=== PATIENT | female | born 1955 | race Caucasian/White ===

== ENCOUNTER 2020-10-28 14:52 | Emergency (ER) | payer MEDICARE ==
[~2020-10-28] VITALS: Ht 157.5 cm; Wt 64.3 kg
[2020-10-28 19:40] LABS: BASOPHILS # (AUTO) 0.1 X10'3 (0-0.2); EOSINOPHILS # (AUTO) 0.1 X10'3 (0-0.9); EOSINOPHILS % (AUTO) 1.1 % (0-6); HEMATOCRIT 39.4 % (35.0-45.0); HEMOGLOBIN 13.3 g/dl (12.0-16.0); LYMPHOCYTES # (AUTO) 2.5 X10'3 (1.1-4.8); LYMPHOCYTES % (AUTO) 22.1 % (21-51); MEAN CORPUSCULAR HEMOGLOBIN 30.3 PG (27.0-31.0); MEAN CORPUSCULAR HGB CONC 33.8 g/dL (33.0-36.5); MEAN CORPUSCULAR VOLUME 89.7 FL (78-98); MEAN PLATELET VOLUME 7.6 FL (7.4-10.4); MONOCYTES % (AUTO) 9.2 % (2-12); NEUTROPHILS # (AUTO) 7.4 X10'3 (1.8-7.7); NEUTROPHILS % (AUTO) 66.6 % (42-75); PLATELET COUNT 372 X10'3 (140-440); RED BLOOD COUNT 4.39 X10'6 (4.20-5.60); RED CELL DISTRIBUTION WIDTH 14.2 % (11.5-14.5); WHITE BLOOD COUNT 11.1 X10'3 (4.5-11.0)
[2020-10-28 19:47] LABS: ALANINE AMINOTRANSFERASE 25 U/L (12-78); ALBUMIN 3.8 G/DL (3.4-5.0); ALBUMIN/GLOBULIN RATIO 0.9 (1.1-1.5); ALKALINE PHOSPHATASE 78 IU/L (46-116); ANION GAP 6 (8-16); ASPARTATE AMINO TRANSFERASE 18 U/L (10-37); BILIRUBIN,TOTAL 0.5 MG/DL (0.1-1.0); BLOOD UREA NITROGEN 19 MG/DL (7-18); BUN/CREATININE RATIO 25.3 (6.6-38.0); CALCIUM 9.6 MG/DL (8.5-10.1); CHLORIDE 98 MMOL/L (99-107); CREATININE 0.75 MG/DL (0.40-0.90); GLUCOSE 87 MG/DL (70-104); POTASSIUM 3.8 MMOL/L (3.5-5.1); SODIUM 135 MMOL/L (135-145); TOTAL CARBON DIOXIDE 31.1 MMOL/L (24-32); TOTAL PROTEIN 8.2 G/DL (6.4-8.2); eGFR 78 ML/MIN
[2020-10-28 19:56] VITALS: BP 167/82
--- NOTE | 2020-10-28 19:57 | NUR ---
pt is resting quietly on gurney, pt would like to go, waiting for ultrasound
--- NOTE | 2020-10-28 20:00 | NUR ---
tech is on the way in
[2020-10-28] MEDS ORDERED: cephalexin 250mg capsule PO ONE (21:35)
--- NOTE | 2020-10-28 21:37 | NUR ---
cardiovascular invasive specialist has done procedure
[2020-10-28] MEDS ORDERED: CEPH-585 PO (21:45)
== END 2020-10-28 21:51 | disposition home or self-care (01) ==
LOC: ER 14:53
DX: L03.115 Cellulitis of right lower limb (principal); J44.9 Chronic obstructive pulmonary disease, unspecified; M81.0 Age-related osteoporosis without current pathological fracture
CPT/HCPCS: 36415; 80053; 85025; 93971; 99284

== ENCOUNTER 2021-10-22 16:35 | Inpatient (IN) | payer MEDICARE ==
[~2021-10-22] VITALS: Ht 157.5 cm; Wt 60.9 kg
[~2021-10-22 16:35] MED LIST: ALB0.5UD IH; ALBU90AE2 INH; AMLO5TAB16 PO; AZIT250T27 PO; CEPH-585 PO; CLOB30CR11; FLUT1DIS10 INH; LEVO100T PO; MONT-40 PO; TIOT4MIS2 INH; Vitamin B12; Vitamin C; Vitamin D3
[2021-10-22] MEDS ORDERED: ondansetron/PF 4mg/2ml inj IV ONE (17:05)
[2021-10-22] MEDS ORDERED: fentaNYL/PF 50MCG/1 ML 2ML syringe IV ONE ×2 (17:05→18:25)
--- NOTE | 2021-10-22 17:36 | NUR ---
ORDER FOR FENTANYL 50MCG. PT STATES SHE DOES NOT LIKE PAIN MEDS. 25MCG GIVEN TO SEE HOW PT TOLERATED. PT ABLE TO RELAX BACK INTO THE BED AND STATES BREATING IS IMPROVED. PT DECLINES THE REST OF THE MED. PT SUSNA WELL WITH 25MCG
[2021-10-22 17:42] LABS: BASOPHILS # (AUTO) 0.1 X10'3 (0-0.2); BASOPHILS % (AUTO) 0.4 % (0-1); EOSINOPHILS # (AUTO) 0.1 X10'3 (0-0.9); EOSINOPHILS % (AUTO) 0.5 % (0-6); HEMATOCRIT 36.5 % (35.0-45.0); HEMOGLOBIN 12.1 g/dl (12.0-16.0); LYMPHOCYTES # (AUTO) 1.3 X10'3 (1.1-4.8); LYMPHOCYTES % (AUTO) 9.1 % (21-51); MEAN CORPUSCULAR HEMOGLOBIN 28.6 PG (27.0-31.0); MEAN CORPUSCULAR HGB CONC 33.2 g/dL (33.0-36.5); MEAN PLATELET VOLUME 7.3 FL (7.4-10.4); MONOCYTES % (AUTO) 7.5 % (2-12); NEUTROPHILS # (AUTO) 11.4 X10'3 (1.8-7.7); NEUTROPHILS % (AUTO) 82.5 % (42-75); PLATELET COUNT 370 X10'3 (140-440); RED BLOOD COUNT 4.25 X10'6 (4.20-5.60); RED CELL DISTRIBUTION WIDTH 14.4 % (11.5-14.5); WHITE BLOOD COUNT 13.8 X10'3 (4.5-11.0)
[2021-10-22 17:58] LABS: ALANINE AMINOTRANSFERASE 24 U/L (12-78); ALBUMIN 3.8 G/DL (3.4-5.0); ALKALINE PHOSPHATASE 76 IU/L (46-116); ANION GAP 10 (8-16); ASPARTATE AMINO TRANSFERASE 18 U/L (10-37); BILIRUBIN,TOTAL 0.4 MG/DL (0.1-1.0); BLOOD UREA NITROGEN 21 MG/DL (7-18); BUN/CREATININE RATIO 29.6 (6.6-38.0); CHLORIDE 101 MMOL/L (99-107); CREATININE 0.71 MG/DL (0.40-0.90); GLUCOSE 97 MG/DL (70-104); POTASSIUM 4.2 MMOL/L (3.5-5.1); SODIUM 140 MMOL/L (135-145); TOTAL CARBON DIOXIDE 28.7 MMOL/L (24-32); TOTAL PROTEIN 7.6 G/DL (6.4-8.2); eGFR 83 ML/MIN
[2021-10-22 18:02] LABS: MAGNESIUM 1.9 MG/DL (1.5-2.4)
[2021-10-22] MEDS ORDERED: ketamine 50 mg/ml 10ml vial IV ONE (18:55)
[2021-10-22] MEDS ORDERED: LIDOcaine 1% W/epiNEPHrine 1:200,000 10ml vial IJ ONE (18:55)
[2021-10-22] MEDS ORDERED: LIDOcaine 1% W/epiNEPHrine 1:100,000 20ml vial IJ ONE (19:35)
[2021-10-22] MEDS ORDERED: morphine 4 MG/ML inj SYRINge IV ONE (20:55)
[2021-10-22] MEDS ORDERED: temazepam 15mg capsule PO PRN (21:00)
[2021-10-22] MEDS ORDERED: normal saline 1000ml 1,000 ML IV ONE (21:00)
[2021-10-22] MEDS ORDERED: niCARDipine-NS 40mg/200ml IVPB 200 ML IV SCH (21:25)
[2021-10-22] MEDS ORDERED: acetaminophen 325mg tablet PO PRN ×2 (22:05)
[2021-10-22] MEDS ORDERED: HYDROcodone/acetaminophen 5mg/325mg tablet PO PRN (22:05)
[2021-10-22] MEDS ORDERED: acetaminophen 650mg rectal suppository RC PRN (22:05)
[2021-10-22] MEDS ORDERED: magnesium hydroxide 30ml (MOM) UD suspension PO PRN (22:05)
[2021-10-22] MEDS ORDERED: bisacodyl 10mg suppository rectal RC PRN (22:05)
[2021-10-22] MEDS ORDERED: mag hydrox/Alum hydrox/simeth 30ml oral suspension PO PRN (22:05)
[2021-10-22] MEDS ORDERED: ondansetron/PF 4mg/2ml inj IV PRN (22:05)
[2021-10-22] MEDS ORDERED: diphenhydrAMINE 50 mg/ml inj IV PRN (22:05)
[2021-10-22] MEDS ORDERED: ondansetron 4mg rapidly disintigrating tab PO PRN (22:05)
[2021-10-22] MEDS ORDERED: diphenhydrAMINE 25mg capsule PO PRN (22:05)
[2021-10-22] MEDS: normal saline 1000ml 1,000 ML IV SCH (22:05)
[2021-10-22] MEDS ORDERED: morphine 2 MG/ML inj. syringe IV PRN ×2 (22:05)
[2021-10-22 22:27] LABS: HEMOGLOBIN A1C 5.8 % (4.5-6.2)
[2021-10-22 22:41] LABS: CREATINE KINASE 72 U/L (26-192); PHOSPHORUS 4.2 MG/DL (2.3-4.5)
--- NOTE | 2021-10-22 23:20 | NUR ---
SPOKE WITH DOCTOR REGARDING PT BP. ADDITIONAL HTN MEDICATION NON-ADMINISTERED PER DISCUSSION.
[2021-10-22] MEDS: methylPREDNISolone sod succ 125mg/2ml vial IV SCH (23:51)
[2021-10-22] MEDS: DOXYCYCLINE 100MG CAPSULE PO SCH (23:51)
[2021-10-22] MEDS: HYDROmorphone inj. 0.5 MG/0.5 ML DISP.SYRIN IV PRN (23:52)
[2021-10-23] MEDS: HYDROmorphone 1 mg/ml syringe IV PRN ×3 (00:44→21:53)
[2021-10-23 01:06] LABS: MEAN PLATELET VOLUME 7.1 FL (7.4-10.4); RED BLOOD COUNT 4.01 X10'6 (4.20-5.60); RED CELL DISTRIBUTION WIDTH 14.6 % (11.5-14.5)
[2021-10-23 01:07] LABS: BASOPHILS % (AUTO) 0.2 % (0-1); EOSINOPHILS % (AUTO) 0.1 % (0-6); HEMATOCRIT 35.2 % (35.0-45.0); HEMOGLOBIN 11.6 g/dl (12.0-16.0); LYMPHOCYTES # (AUTO) 0.8 X10'3 (1.1-4.8); MEAN CORPUSCULAR HEMOGLOBIN 28.9 PG (27.0-31.0); MEAN CORPUSCULAR HGB CONC 32.9 g/dL (33.0-36.5); MEAN CORPUSCULAR VOLUME 87.7 FL (78-98); MONOCYTES # (AUTO) 0.7 X10'3 (0-0.9); MONOCYTES % (AUTO) 3.7 % (2-12); NEUTROPHILS # (AUTO) 17.8 X10'3 (1.8-7.7); PLATELET COUNT 354 X10'3 (140-440); WHITE BLOOD COUNT 19.3 X10'3 (4.5-11.0)
[2021-10-23 01:25] LABS: ALANINE AMINOTRANSFERASE 25 U/L (12-78); ALBUMIN 3.6 G/DL (3.4-5.0); ALKALINE PHOSPHATASE 69 IU/L (46-116); ANION GAP 12 (8-16); ASPARTATE AMINO TRANSFERASE 19 U/L (10-37); BILIRUBIN,TOTAL 0.5 MG/DL (0.1-1.0); BLOOD UREA NITROGEN 20 MG/DL (7-18); BUN/CREATININE RATIO 31.3 (6.6-38.0); CALCIUM 8.6 MG/DL (8.5-10.1); CHLORIDE 102 MMOL/L (99-107); CHOL/HDL RATIO 2.3 (0.00-4.99); CHOLESTEROL 246 MG/DL (0-200); CREATININE 0.64 MG/DL (0.40-0.90); GLUCOSE 114 MG/DL (70-104); HDL CHOLESTEROL 106 MG/DL (35-60); LDL CHOLESTEROL 123 MG/DL (50-100); POTASSIUM 4.2 MMOL/L (3.5-5.1); SODIUM 141 MMOL/L (135-145); TOTAL CARBON DIOXIDE 26.6 MMOL/L (24-32); TOTAL PROTEIN 7.2 G/DL (6.4-8.2); TRIGLYCERIDES 48 MG/DL (20-135); eGFR > 90 ML/MIN
--- NOTE | 2021-10-23 02:18 | NUR ---
Patient in room ORTHO 4012. I have received report from Mohsen [facility] ED and had the opportunity to ask questions and assume patient care. Addendum: 10/23/21 at 0256 by Pat Montague RN Amended: Links added.
[2021-10-23 02:40] VITALS: BP 143/61
--- NOTE | 2021-10-23 03:15 | NUR ---
Pt . arrived on floor via [facility] accompanied by the ED RODNEY Connolly. Chest tube intact and patent, site drsg intact at this time.set up on wall suction to low intermitten; pt. vanessaies c/o SOB at this time- o2 at 6 L via n/c per RT advise. Addendum: 10/23/21 at 0416 by Pat Montague RN Amended: Links added.
[2021-10-23 06:00] VITALS: BP 139/59
[2021-10-23] MEDS: pantoprazole 40mg Tablet.DR PO SCH (07:30)
[2021-10-23] MEDS: docusate sod 100mg capsule PO SCH ×2 (08:00→21:24)
[2021-10-23] MEDS: DOXYCYCLINE 100MG CAPSULE PO SCH ×2 (08:00→21:24)
[2021-10-23] MEDS: methylPREDNISolone sod succ 125mg/2ml vial IV SCH ×2 (08:00→21:32)
[2021-10-23] MEDS: ALBUTEROL INHALER 1 PUFF/90 MCG INHALation IH PRN ×2 (09:08→13:22)
[2021-10-23 10:00] VITALS: BP 109/86
[2021-10-23] MEDS: normal saline 1000ml 1,000 ML IV SCH ×2 (11:55→21:38)
[2021-10-23] MEDS: cefTRIAXone 1g/NS 100ml IVPB 100 ML IV SCH (11:55)
--- NOTE | 2021-10-23 12:00 | NUR ---
Problems reprioritized. Patient report given, questions answered & plan of care reviewed with Glenis STEVENS. Addendum: 10/23/21 at 1319 by Pat Montague RN Amended: Links added.
[2021-10-23] MEDS: HYDROmorphone inj. 0.5 MG/0.5 ML DISP.SYRIN IV PRN ×2 (12:42→17:36)
--- NOTE | 2021-10-23 13:00 | NUR ---
Patient in room ORTHO 4012. I have received report from Pat STEVENS and had the opportunity to ask questions and assume patient care.
--- NOTE | 2021-10-23 13:34 | NUR ---
PAGER ID: [phone] MESSAGE: Glenis Mauro [phone] Re: [id number] Brunty please call re: patient home medication inhaler. She is very anxious about getting her inhaler treatments.
[2021-10-23 14:00] VITALS: BP 143/50
--- NOTE | 2021-10-23 14:34 | NUR ---
PAGER ID: [phone] MESSAGE: Trae [phone] Re: Jameson [id number] Please call Re: patient inhaler, and can we get a dose of Ativan for patient she is very anxious
--- NOTE | 2021-10-23 14:38 | NUR ---
PAGER ID: [phone] MESSAGE: Glenis Mauro [phone] Re: Jameson can she have a Regular diet she is on clears.
[2021-10-23] MEDS ORDERED: LORazepam 0.5 MG tablet PO PRN (14:40)
[2021-10-23] MEDS ORDERED: LORazepam 2 mg/ml vial IV PRN (14:40)
[2021-10-23] MEDS ORDERED: CHOL20004 PO (14:58)
[2021-10-23] MEDS ORDERED: ASCO60LO PO (14:58)
[2021-10-23] MEDS ORDERED: CLOB30CR4 TOP (14:58)
[2021-10-23] MEDS ORDERED: CYAN250010 PO (14:58)
--- NOTE | 2021-10-23 16:23 | NUR ---
Left message for Dong Manzano in the metallurgical lab technician to call me back re: chest xray
[2021-10-23] MEDS ORDERED: ALBUTEROL SULFATE INH PRN (16:25)
--- NOTE | 2021-10-23 17:12 | NUR ---
Dong with [facility] will contact Iván Lipscomb regarding chest xray and that patient has an air leak.
[2021-10-23] MEDS: albuterol 2.5 MG/3 ML nebule NEB PRN ×2 (17:26→21:29)
[2021-10-23] MEDS: TIOTROPIUM BROMIDE INHALER IH SCH ×2 (17:30→21:32)
[2021-10-23] MEDS: FLUTICASONE IH SCH ×2 (17:36→21:31)
[2021-10-23] MEDS: SALMETEROL IH SCH ×2 (17:36→21:31)
--- NOTE | 2021-10-23 17:46 | NUR ---
PAGER ID: [phone] MESSAGE: Glenis Mauro [phone] Re: Jameson [id number] patient feels short of breath would like to know if she can get a blood gas ? Addendum: 10/23/21 at 1759 by Glenis Marion RN Received orders for ABG. Also, advised Dr Ruiz that I have been trying to reach Iván Lipscomb to advise patient has an air leak in chest tube. Which Iván said in his not earlier that she did not. Dr Ruiz will try and reach him.
[2021-10-23 18:08] LABS: ABG BASE EXCESS -0.8 mmol/L (-2.0-2.0); ABG HCO3 24.8 mmol/L (22.0-26.0); ABG OXYGEN SATURATION 94.1 % (94-97); ABG PCO2 (T) 44.5 mmHg (32.0-45.0); ABG PO2 (T) 67.6 mmHg (75.0-100.0); ALLEN'S TEST POSITIVE; FCOHb 0.3 % (0.0-3.9); FLOW 2 L/min; FMetHb 0.3 % (0.0-1.5); FO2Hb 93.5 % (94-97); TOTAL HEMOGLOBIN 12.3 G/dl (12.0-16.0)
--- NOTE | 2021-10-23 18:31 | NUR ---
Problems reprioritized. Patient report given, questions answered & plan of care reviewed with Rosalie STEVENS.
[2021-10-23] MEDS ORDERED: budesonide 0.5mg/2ml UD nebule IH SCH (21:00)
[2021-10-23] MEDS ORDERED: albuterol 2.5 MG/3 ML nebule NEB SCH (21:00)
[2021-10-23] MEDS: amLODIPine 5mg tablet PO SCH (21:29)
[2021-10-23 21:36] VITALS: BP 130/48
[2021-10-24] MEDS: HYDROmorphone 1 mg/ml syringe IV PRN ×4 (05:10→17:39)
--- NOTE | 2021-10-24 06:30 | NUR ---
Paged RT per patient's request for nebulizing treatment. Spoke with RT, said she will make patient first on her list.
[2021-10-24 06:48] LABS: BASOPHILS % (AUTO) 0.1 % (0-1); EOSINOPHILS % (AUTO) 0 % (0-6); HEMOGLOBIN 11.5 g/dl (12.0-16.0); LYMPHOCYTES # (AUTO) 0.4 X10'3 (1.1-4.8); MEAN CORPUSCULAR HEMOGLOBIN 28.2 PG (27.0-31.0); MEAN CORPUSCULAR HGB CONC 32.1 g/dL (33.0-36.5); MEAN PLATELET VOLUME 7.9 FL (7.4-10.4); MONOCYTES # (AUTO) 0.3 X10'3 (0-0.9); MONOCYTES % (AUTO) 2.4 % (2-12); NEUTROPHILS # (AUTO) 11.8 X10'3 (1.8-7.7); NEUTROPHILS % (AUTO) 94.5 % (42-75); PLATELET COUNT 342 X10'3 (140-440); RED BLOOD COUNT 4.09 X10'6 (4.20-5.60); RED CELL DISTRIBUTION WIDTH 14.8 % (11.5-14.5); WHITE BLOOD COUNT 12.5 X10'3 (4.5-11.0)
[2021-10-24 07:02] VITALS: BP 152/63
[2021-10-24] MEDS: albuterol 2.5 MG/3 ML nebule NEB SCH ×5 (07:02→23:03)
[2021-10-24] MEDS: FLUTICASONE IH SCH ×2 (07:13→19:05)
[2021-10-24] MEDS: SALMETEROL IH SCH ×2 (07:13→19:05)
[2021-10-24] MEDS: TIOTROPIUM BROMIDE INHALER IH SCH ×3 (07:14→19:06)
[2021-10-24 07:19] LABS: ALANINE AMINOTRANSFERASE 26 U/L (12-78); ALBUMIN 3.5 G/DL (3.4-5.0); ALBUMIN/GLOBULIN RATIO 0.9 (1.1-1.5); ALKALINE PHOSPHATASE 67 IU/L (46-116); ANION GAP 11 (8-16); ASPARTATE AMINO TRANSFERASE 28 U/L (10-37); BILIRUBIN,TOTAL 0.4 MG/DL (0.1-1.0); BLOOD UREA NITROGEN 13 MG/DL (7-18); BUN/CREATININE RATIO 20.3 (6.6-38.0); CALCIUM 8.9 MG/DL (8.5-10.1); CHLORIDE 97 MMOL/L (99-107); CREATININE 0.64 MG/DL (0.40-0.90); GLUCOSE 141 MG/DL (70-104); POTASSIUM 4.4 MMOL/L (3.5-5.1); SODIUM 134 MMOL/L (135-145); TOTAL CARBON DIOXIDE 25.7 MMOL/L (24-32); TOTAL PROTEIN 7.3 G/DL (6.4-8.2); eGFR > 90 ML/MIN
[2021-10-24] MEDS: pantoprazole 40mg Tablet.DR PO SCH (07:49)
[2021-10-24] MEDS: docusate sod 100mg capsule PO SCH ×2 (07:49→19:42)
[2021-10-24] MEDS: montelukast 10mg tablet PO SCH (07:49)
[2021-10-24] MEDS: DOXYCYCLINE 100MG CAPSULE PO SCH ×2 (07:49→19:46)
[2021-10-24] MEDS: methylPREDNISolone sod succ 125mg/2ml vial IV SCH (07:50)
[2021-10-24] MEDS: cefTRIAXone 1g/NS 100ml IVPB 100 ML IV SCH (07:50)
[2021-10-24] MEDS: levoTHYROXINE 100mcg tablet PO SCH ×2 (07:50→09:21)
[2021-10-24] MEDS ORDERED: SALMETEROL INH SCH (08:00)
[2021-10-24] MEDS ORDERED: FLUTICASONE INH SCH (08:00)
[2021-10-24] MEDS ORDERED: LORazepam 0.5 MG tablet PO PRN (11:40)
[2021-10-24] MEDS ORDERED: LORazepam 2 mg/ml vial IV PRN (11:40)
[2021-10-24 11:45] VITALS: BP 110/31
--- NOTE | 2021-10-24 12:02 | NUR ---
requested to increase Ativan to 1mg for oral and IV dose, placed new orders
[2021-10-24] MEDS: normal saline 1000ml 1,000 ML IV SCH (13:30)
[2021-10-24 14:38] VITALS: BP 119/45
--- NOTE | 2021-10-24 18:29 | NUR ---
Report to Berto
[2021-10-24] MEDS: amLODIPine 5mg tablet PO SCH (19:46)
[2021-10-24] MEDS: enoxaparin 40mg/0.4ml syringe SUBCUT SCH (19:51)
[2021-10-24] MEDS: HYDROcodone/acetaminophen 10/325mg tab PO PRN (21:50)
[2021-10-24 22:00] VITALS: BP 128/47
[2021-10-25] MEDS: normal saline 1000ml 1,000 ML IV SCH (02:00)
[2021-10-25] MEDS: HYDROcodone/acetaminophen 10/325mg tab PO PRN ×2 (02:01→19:48)
[2021-10-25] MEDS: albuterol 2.5 MG/3 ML nebule NEB SCH ×5 (02:37→20:57)
--- NOTE | 2021-10-25 02:45 | NUR ---
Paged RT, patient is increasingly SOB, O2 %85. She states that she feels like "she can't breath". PRN Ativan 1mg given, O2 increased to 6L. Patient's chest tube was unclamped after being clamped entire shift. She instantly felt "relief", O2 went up to 96%, RR and HR went down to wnm. RT at bedside, breathing treatment given. Patient no longer in distress. Chest tube clamped. Patient awaiting CXR in the am. Addendum: 10/25/21 at 0612 by Nika Matos RN Chest tube UNCLAMPED Bedside report given yesterday from RN, was that chest tube was clamped during day and to remain so until 10/25 am. That was incorrect.
--- NOTE | 2021-10-25 03:56 | NUR ---
Dr. Gifford paged to inform of situation, stated to keep UNCLAMPED.
--- NOTE | 2021-10-25 04:00 | NUR ---
Per MD's progress note from 10/24/21, patient's chest tube is to remain UNCLAMPED and to 20 suction. CXR pending this morning.
[2021-10-25 04:47] LABS: BASOPHILS % (AUTO) 0.3 % (0-1); EOSINOPHILS % (AUTO) 0.3 % (0-6); HEMATOCRIT 29.5 % (35.0-45.0); HEMOGLOBIN 9.7 g/dl (12.0-16.0); LYMPHOCYTES # (AUTO) 1.3 X10'3 (1.1-4.8); LYMPHOCYTES % (AUTO) 10.2 % (21-51); MEAN CORPUSCULAR HEMOGLOBIN 28.3 PG (27.0-31.0); MEAN CORPUSCULAR HGB CONC 32.9 g/dL (33.0-36.5); MEAN PLATELET VOLUME 7.2 FL (7.4-10.4); MONOCYTES # (AUTO) 1.6 X10'3 (0-0.9); MONOCYTES % (AUTO) 11.9 % (2-12); NEUTROPHILS # (AUTO) 10.2 X10'3 (1.8-7.7); NEUTROPHILS % (AUTO) 77.3 % (42-75); PLATELET COUNT 287 X10'3 (140-440); RED BLOOD COUNT 3.43 X10'6 (4.20-5.60); RED CELL DISTRIBUTION WIDTH 14.5 % (11.5-14.5); WHITE BLOOD COUNT 13.2 X10'3 (4.5-11.0)
[2021-10-25 05:04] LABS: ALANINE AMINOTRANSFERASE 23 U/L (12-78); ALBUMIN 2.9 G/DL (3.4-5.0); ALKALINE PHOSPHATASE 50 IU/L (46-116); ANION GAP 6 (8-16); ASPARTATE AMINO TRANSFERASE 28 U/L (10-37); BILIRUBIN,TOTAL 0.3 MG/DL (0.1-1.0); BLOOD UREA NITROGEN 15 MG/DL (7-18); BUN/CREATININE RATIO 23.1 (6.6-38.0); CALCIUM 8.2 MG/DL (8.5-10.1); CHLORIDE 103 MMOL/L (99-107); CREATININE 0.65 MG/DL (0.40-0.90); GLUCOSE 99 MG/DL (70-104); POTASSIUM 3.6 MMOL/L (3.5-5.1); SODIUM 138 MMOL/L (135-145); TOTAL CARBON DIOXIDE 29.4 MMOL/L (24-32); TOTAL PROTEIN 5.8 G/DL (6.4-8.2); eGFR > 90 ML/MIN
[2021-10-25 06:00] VITALS: BP_SYST 110; BP_SYST 95; BP_DIAS 36; BP_DIAS 71
--- NOTE | 2021-10-25 06:27 | NUR ---
Patient in room [facility]TH[facility] 4012. I have received report from Soo STEVENS and had the opportunity to ask questions and assume patient care.
[2021-10-25] MEDS: pantoprazole 40mg Tablet.DR PO SCH (07:59)
[2021-10-25] MEDS: docusate sod 100mg capsule PO SCH ×2 (07:59→19:48)
[2021-10-25] MEDS: cefTRIAXone 1g/NS 100ml IVPB 100 ML IV SCH (08:00)
[2021-10-25] MEDS: TIOTROPIUM BROMIDE INHALER IH SCH ×3 (08:00→21:02)
[2021-10-25] MEDS: montelukast 10mg tablet PO SCH (08:00)
[2021-10-25] MEDS: DOXYCYCLINE 100MG CAPSULE PO SCH (08:00)
[2021-10-25] MEDS: HYDROmorphone 1 mg/ml syringe IV PRN (08:03)
[2021-10-25] MEDS: SALMETEROL IH SCH ×2 (08:05→20:57)
[2021-10-25] MEDS: FLUTICASONE IH SCH ×2 (08:05→20:57)
--- NOTE | 2021-10-25 08:20 | NUR ---
clamped chest tube per Iván in IR. Repeat chest xray at 0930
[2021-10-25 10:00] VITALS: BP 122/44
[2021-10-25] MEDS: HYDROmorphone inj. 0.5 MG/0.5 ML DISP.SYRIN IV PRN (14:13)
[2021-10-25 18:00] VITALS: BP 130/49
--- NOTE | 2021-10-25 18:35 | NUR ---
Patient in room ORTH[facility] 4012. I have received report from RODNEY Guillory and had the opportunity to ask questions and assume patient care.
[2021-10-25] MEDS: amLODIPine 5mg tablet PO SCH (19:49)
[2021-10-25] MEDS: enoxaparin 40mg/0.4ml syringe SUBCUT SCH (19:50)
[2021-10-25] MEDS ORDERED: albuterol 2.5 MG/3 ML nebule NEB SCH (21:30)
[2021-10-25 22:00] VITALS: BP 126/70
[2021-10-25] MEDS: ALBUTEROL INHALER 1 PUFF/90 MCG INHALation IH PRN (22:50)
[2021-10-26] MEDS: methylPREDNISolone sod succ 125mg/2ml vial IV SCH ×2 (00:01→08:30)
[2021-10-26 01:58] VITALS: BP 131/54
[2021-10-26] MEDS: ALBUTEROL INHALER 1 PUFF/90 MCG INHALation IH PRN (03:01)
[2021-10-26] MEDS: HYDROcodone/acetaminophen 10/325mg tab PO PRN (04:34)
[2021-10-26 05:39] LABS: BASOPHILS % (AUTO) 0.3 % (0-1); EOSINOPHILS % (AUTO) 0.1 % (0-6); HEMATOCRIT 34.4 % (35.0-45.0); HEMOGLOBIN 11.4 g/dl (12.0-16.0); LYMPHOCYTES # (AUTO) 0.3 X10'3 (1.1-4.8); LYMPHOCYTES % (AUTO) 3.7 % (21-51); MEAN CORPUSCULAR HEMOGLOBIN 28.8 PG (27.0-31.0); MEAN CORPUSCULAR VOLUME 87.3 FL (78-98); MEAN PLATELET VOLUME 8.2 FL (7.4-10.4); MONOCYTES # (AUTO) 0.1 X10'3 (0-0.9); MONOCYTES % (AUTO) 0.9 % (2-12); NEUTROPHILS # (AUTO) 8.8 X10'3 (1.8-7.7); PLATELET COUNT 330 X10'3 (140-440); RED BLOOD COUNT 3.94 X10'6 (4.20-5.60); RED CELL DISTRIBUTION WIDTH 14.7 % (11.5-14.5); WHITE BLOOD COUNT 9.3 X10'3 (4.5-11.0)
[2021-10-26 05:54] LABS: ALANINE AMINOTRANSFERASE 29 U/L (12-78); ALBUMIN 3.3 G/DL (3.4-5.0); ALBUMIN/GLOBULIN RATIO 0.9 (1.1-1.5); ALKALINE PHOSPHATASE 63 IU/L (46-116); ANION GAP 8 (8-16); ASPARTATE AMINO TRANSFERASE 27 U/L (10-37); BILIRUBIN,TOTAL 0.4 MG/DL (0.1-1.0); BLOOD UREA NITROGEN 14 MG/DL (7-18); CALCIUM 8.9 MG/DL (8.5-10.1); CHLORIDE 99 MMOL/L (99-107); CREATININE 0.56 MG/DL (0.40-0.90); GLUCOSE 123 MG/DL (70-104); POTASSIUM 4.1 MMOL/L (3.5-5.1); SODIUM 141 MMOL/L (135-145); TOTAL CARBON DIOXIDE 34.5 MMOL/L (24-32); TOTAL PROTEIN 6.9 G/DL (6.4-8.2); eGFR > 90 ML/MIN
[2021-10-26 06:00] VITALS: BP 140/45
--- NOTE | 2021-10-26 06:32 | NUR ---
Problems reprioritized. Patient report given, questions answered & plan of care reviewed with RODNEY Guillory.
--- NOTE | 2021-10-26 06:42 | NUR ---
Patient in room ORTHO 4012. I have received report from Brandy STEVENS and had the opportunity to ask questions and assume patient care.
[2021-10-26] MEDS ORDERED: albuterol 2.5 MG/3 ML nebule NEB SCH (07:00)
[2021-10-26] MEDS: TIOTROPIUM BROMIDE INHALER IH SCH (07:18)
[2021-10-26] MEDS: SALMETEROL IH SCH (07:19)
[2021-10-26] MEDS: FLUTICASONE IH SCH (07:19)
[2021-10-26] MEDS: levoTHYROXINE 100mcg tablet PO SCH (08:29)
[2021-10-26] MEDS: pantoprazole 40mg Tablet.DR PO SCH (08:29)
[2021-10-26] MEDS: docusate sod 100mg capsule PO SCH (08:29)
[2021-10-26] MEDS: montelukast 10mg tablet PO SCH (08:30)
[2021-10-26] MEDS ORDERED: FURO-150 PO (09:28)
[2021-10-26 10:00] VITALS: BP 119/40
--- NOTE | 2021-10-26 11:40 | NUR ---
PAGER ID: [phone] MESSAGE: Pastora [phone] re: Ab Bach in [id number]. Pt has decided that she would like to go home. Her son will be there to help her. Addendum: 10/26/21 at 1140 by Pastora Farmer RN incorrect pt
== END 2021-10-26 10:56 | disposition home health service (06) | DRG 199 ==
LOC: ER 16:35 → ED HOLD 22:09 → ORTHO 4S 10-23 02:30
PROVIDERS: ADMIT Family Medicine; ATTEND Family Medicine
PROC: 0W9930Z Drainage of Right Pleural Cavity with Drainage Device, Percutaneous Approach (ICD-10-PCS; principal; 2021-10-22)
PROC: 5A0935A Assistance with Respiratory Ventilation, Less than 24 Consecutive Hours, High Flow/Velocity Cannula (ICD-10-PCS; 2021-10-22)
DX: J95.811 Postprocedural pneumothorax (principal); J96.21 Acute and chronic respiratory failure with hypoxia; J44.1 Chronic obstructive pulmonary disease with (acute) exacerbation; C34.91 Malignant neoplasm of unspecified part of right bronchus or lung; I73.9 Peripheral vascular disease, unspecified; E86.1 Hypovolemia; E03.9 Hypothyroidism, unspecified; E78.5 Hyperlipidemia, unspecified; I10 Essential (primary) hypertension; F41.1 Generalized anxiety disorder; M81.0 Age-related osteoporosis without current pathological fracture; Z79.899 Other long term (current) drug therapy; Z86.711 Personal history of pulmonary embolism; Z87.891 Personal history of nicotine dependence
CPT/HCPCS: 32408; 36410; 36415; 36600; 71045; 71046; 76937; 77012; 80053; 80061; 82550; 82803; 83036; 83735; 83880; 84100; 84443; 84484; 85018; 85025; 85610; 87081; 88305; 88341; 88342; 94640; 94664; 94668; 94760; 94799; 96374; 96375; 97116; 97161; 97530; 99152; 99153; 99291; A4615; A4620; A6223; A6258; A6449; C1729; C1751; G0378; J0696; J1170; J1650; J2060; J2250; J2270; J2405; J2930; J3010; J3490; J7030

== ENCOUNTER 2023-07-28 17:37 | Inpatient (IN) | payer MEDICARE ==
[~2023-07-28] VITALS: Ht 157.5 cm; Wt 67.0 kg
[~2023-07-28 17:37] MED LIST changes: +ASCO60LO PO; -CEPH-585 PO; +CHOL20004 PO; -CLOB30CR11; +CLOB30CR4 TOP; +CYAN250010 PO; -Vitamin B12; -Vitamin C; -Vitamin D3
[2023-07-28] MEDS: methylPREDNISolone sod succ 125mg/2ml vial IV ONE (18:40)
[2023-07-28] MEDS: CefTRIAXone/D5W-Rocephin 1gm 50 ML IV ONE (18:41)
[2023-07-28 19:26] LABS: BASOPHILS # (AUTO) 0.1 X10'3 (0-0.2); BASOPHILS % (AUTO) 0.6 % (0-1); EOSINOPHILS # (AUTO) 0.3 X10'3 (0-0.9); EOSINOPHILS % (AUTO) 2.2 % (0-6); HEMATOCRIT 35.4 % (35.0-45.0); HEMOGLOBIN 11.4 g/dl (12.0-16.0); LYMPHOCYTES # (AUTO) 1.6 X10'3 (1.1-4.8); LYMPHOCYTES % (AUTO) 10.3 % (21-51); MEAN CORPUSCULAR HEMOGLOBIN 26.9 PG (27.0-31.0); MEAN CORPUSCULAR HGB CONC 32.2 g/dL (33.0-36.5); MEAN CORPUSCULAR VOLUME 83.3 FL (78-98); MEAN PLATELET VOLUME 6.2 FL (7.4-10.4); MONOCYTES # (AUTO) 1.6 X10'3 (0-0.9); MONOCYTES % (AUTO) 10.3 % (2-12); NEUTROPHILS # (AUTO) 11.9 X10'3 (1.8-7.7); NEUTROPHILS % (AUTO) 76.6 % (42-75); PLATELET COUNT 504 X10'3 (140-440); RED BLOOD COUNT 4.25 X10'6 (4.20-5.60); RED CELL DISTRIBUTION WIDTH 16.6 % (11.5-14.5); WHITE BLOOD COUNT 15.5 X10'3 (4.5-11.0)
[2023-07-28 19:36] LABS: D-DIMER 1.17 MG/L FEU (0-0.50)
[2023-07-28 19:44] LABS: BILIRUBIN,URINE NEGATIVE (Neg); CLARITY,URINE CLEAR (Clear); COLOR,URINE YELLOW (Yellow); GLUCOSE, URINE NEGATIVE (Neg); KETONES,URINE NEGATIVE (Neg); LEUKOCYTE ESTERASE ,URINE NEGATIVE (Neg); NITRITES, URINE NEGATIVE (Neg); OCCULT BLOOD,URINE MODERATE (Neg); PH,URINE 7.5 (4.8-8.0); PROTEIN,URINE NEGATIVE (Neg); UROBILINOGEN,URINE 0.2 E.U/dL (0.2-1.0)
[2023-07-28 19:45] LABS: ALANINE AMINOTRANSFERASE 21 U/L (12-78); ALBUMIN 3.2 G/DL (3.4-5.0); ALBUMIN/GLOBULIN RATIO 0.9 (1.1-1.5); ALKALINE PHOSPHATASE 60 IU/L (46-116); ANION GAP 6 (8-16); ASPARTATE AMINO TRANSFERASE 44 U/L (10-37); BILIRUBIN,TOTAL 0.5 MG/DL (0.1-1.0); BLOOD UREA NITROGEN 12 MG/DL (7-18); BUN/CREATININE RATIO 14.1 (10.0-20.0); CALCIUM 8.8 MG/DL (8.5-10.1); CHLORIDE 94 MMOL/L (99-107); CREATININE 0.85 MG/DL (0.40-0.90); GLUCOSE 99 MG/DL (70-104); POTASSIUM 4.2 MMOL/L (3.5-5.1); PRO BRAIN NATRIURETIC PEPTIDE 160 PG/ML (0-125); SODIUM 135 MMOL/L (135-145); TOTAL CARBON DIOXIDE 35.1 MMOL/L (24-32); TOTAL PROTEIN 6.7 G/DL (6.4-8.2); eCRCL 51 ML/MIN; eGFR 67 ML/MIN
[2023-07-28 19:47] LABS: UA COLLECTION TYPE FOLEY CATH
[2023-07-28] MEDS ORDERED: iohexol 350MG/ML 100ml bottle IV ONE (19:53)
[2023-07-28] MEDS: normal saline 1000ml 1,000 ML IV ONE (19:55)
[2023-07-28 20:00] LABS: BACTERIA,URINE NONE SEEN /HPF (Neg); MUCUS STRANDS NONE SEEN /LPF (Neg); SQUAMOUS EPITHELIAL CELL,UR FEW /LPF (FEW); WBC,URINE 0-4 /HPF (0-4)
[2023-07-28] MEDS: albuterol 2.5 MG/3 ML nebule NEB ONE (21:03)
[2023-07-28 21:04] VITALS: PULSE 97; RESP 27; O2SAT 95
[2023-07-28 21:16] VITALS: PULSE 97; RESP 27; O2SAT 95
[2023-07-28] MEDS ORDERED: acetaminophen 325mg tablet PO PRN ×2 (21:50→23:35)
[2023-07-28] MEDS ORDERED: mag hydrox/Alum hydrox/simeth 30ml oral suspension PO PRN (21:50)
[2023-07-28] MEDS ORDERED: ondansetron/PF 4mg/2ml inj IV PRN (21:50)
[2023-07-28] MEDS ORDERED: magnesium hydroxide 30ml (MOM) UD suspension PO PRN (21:50)
[2023-07-28] MEDS ORDERED: potassium Cl 20 mEq SR tablet PO PRN ×2 (21:50)
[2023-07-28] MEDS ORDERED: magnesium 2GM in 50ml NS 50 ML IV PRN (21:50)
[2023-07-28] MEDS ORDERED: magnesium 4gm in 100ml NS 100 ML IV PRN (21:50)
[2023-07-28] MEDS ORDERED: magnesium Cl slow-release 64mg tablet PO PRN (21:50)
[2023-07-28] MEDS ORDERED: potassium Cl 40MEQ/1/2NS 520ml 520 ML IV PRN (21:50)
[2023-07-28] MEDS: normal saline 1000ml 1,000 ML IV SCH (22:38)
[2023-07-28] MEDS ORDERED: albuterol 2.5 MG/3 ML nebule NEB PRN (23:05)
[2023-07-28] MEDS ORDERED: HYDROmorphone inj. 0.5 MG/0.5 ML DISP.SYRIN IV PRN (23:15)
[2023-07-28] MEDS: acetaminophen 1,000mg/100ml IV 100 ML IV ONE (23:56)
[2023-07-29] VITALS (13 sets, daily range): BP systolic 148–175; BP diastolic 50–76; PULSE 73–94; RESP 17–20; TEMP 98.1–98.5; O2SAT 94–98
[2023-07-29] MEDS: methylPREDNISolone sod succ/PF 40mg inj. IV SCH (02:31)
[2023-07-29] MEDS: azithromycin 250mg tablet PO SCH (02:32)
[2023-07-29 03:12] LABS: BASOPHILS % (AUTO) 0.4 % (0-1); EOSINOPHILS % (AUTO) 0 % (0-6); HEMATOCRIT 33.6 % (35.0-45.0); HEMOGLOBIN 10.7 g/dl (12.0-16.0); LYMPHOCYTES # (AUTO) 0.3 X10'3 (1.1-4.8); LYMPHOCYTES % (AUTO) 2.5 % (21-51); MEAN CORPUSCULAR HEMOGLOBIN 26.5 PG (27.0-31.0); MEAN CORPUSCULAR HGB CONC 31.9 g/dL (33.0-36.5); MEAN PLATELET VOLUME 6.1 FL (7.4-10.4); MONOCYTES # (AUTO) 0.1 X10'3 (0-0.9); MONOCYTES % (AUTO) 0.5 % (2-12); NEUTROPHILS # (AUTO) 11.5 X10'3 (1.8-7.7); NEUTROPHILS % (AUTO) 96.6 % (42-75); PLATELET COUNT 474 X10'3 (140-440); RED BLOOD COUNT 4.05 X10'6 (4.20-5.60); RED CELL DISTRIBUTION WIDTH 16.6 % (11.5-14.5); WHITE BLOOD COUNT 11.9 X10'3 (4.5-11.0)
[2023-07-29 03:27] LABS: ALANINE AMINOTRANSFERASE 20 U/L (12-78); ALBUMIN 2.6 G/DL (3.4-5.0); ALBUMIN/GLOBULIN RATIO 0.7 (1.1-1.5); ALKALINE PHOSPHATASE 45 IU/L (46-116); ANION GAP 10 (8-16); ASPARTATE AMINO TRANSFERASE 35 U/L (10-37); BILIRUBIN,TOTAL 0.3 MG/DL (0.1-1.0); BLOOD UREA NITROGEN 14 MG/DL (7-18); BUN/CREATININE RATIO 17.9 (10.0-20.0); CALCIUM 8.4 MG/DL (8.5-10.1); CHLORIDE 98 MMOL/L (99-107); CREATININE 0.78 MG/DL (0.40-0.90); GLUCOSE 144 MG/DL (70-104); MAGNESIUM 1.6 MG/DL (1.5-2.4); PHOSPHORUS 4.6 MG/DL (2.3-4.5); POTASSIUM 4.3 MMOL/L (3.5-5.1); SODIUM 135 MMOL/L (135-145); TOTAL CARBON DIOXIDE 27.2 MMOL/L (24-32); TOTAL PROTEIN 6.6 G/DL (6.4-8.2); eCRCL 56 ML/MIN; eGFR 74 ML/MIN
[2023-07-29] MEDS: ipratropium/albuterol 3ml nebule NEB SCH (03:37)
[2023-07-29] MEDS: K and/or MAG REPLACEMENT MC SCH (08:00)
[2023-07-29] MEDS: levoTHYROXINE 100mcg tablet PO SCH (09:40)
[2023-07-29] MEDS: docusate sod 100mg capsule PO SCH (09:41)
[2023-07-29] MEDS: diltiazem 30mg tablet PO SCH (09:42)
[2023-07-29] MEDS: traMADol 50MG tablet PO SCH (09:44)
[2023-07-29] MEDS: CefTRIAXone/D5W-Rocephin 1gm 50 ML IV SCH (09:48)
[2023-07-29] MEDS ORDERED: ALBUTEROL SULFATE INH PRN (11:10)
[2023-07-29] MEDS ORDERED: clobetasol 0.05% cream 30gm TP PRN (11:10)
[2023-07-29] MEDS ORDERED: albuterol 2.5 MG/3 ML nebule NEB PRN (11:10)
[2023-07-29 12:09] LABS: THYROID STIMULATING HORMONE 0.18 ulU/ml (0.34-4.50)
[2023-07-29] MEDS: albuterol 2.5 MG/3 ML nebule NEB SCH (14:00)
[2023-07-29] MEDS: enoxaparin 40mg/0.4ml syringe SQ SCH (20:00)
[2023-07-29] MEDS: budesonide 0.5mg/2ml UD nebule IH SCH (20:55)
[2023-07-30] VITALS (10 sets, daily range): BP systolic 147–188; BP diastolic 64–75; PULSE 91–104; RESP 14–19; TEMP 97.9–98.2; O2SAT 91–98
[2023-07-30 06:29] LABS: EOSINOPHILS % (AUTO) 0 % (0-6); HEMOGLOBIN 9.8 g/dl (12.0-16.0); LYMPHOCYTES # (AUTO) 0.2 X10'3 (1.1-4.8); MEAN CORPUSCULAR HEMOGLOBIN 26.8 PG (27.0-31.0); MEAN CORPUSCULAR HGB CONC 32.3 g/dL (33.0-36.5)
[2023-07-30 06:36] LABS: BASOPHILS % (AUTO) 0.1 % (0-1); HEMATOCRIT 30.5 % (35.0-45.0); LYMPHOCYTES % (AUTO) 1.2 % (21-51); MEAN CORPUSCULAR VOLUME 83.1 FL (78-98); MEAN PLATELET VOLUME 6.4 FL (7.4-10.4); MONOCYTES # (AUTO) 0.5 X10'3 (0-0.9); MONOCYTES % (AUTO) 2.9 % (2-12); NEUTROPHILS # (AUTO) 15.9 X10'3 (1.8-7.7); NEUTROPHILS % (AUTO) 95.8 % (42-75); PLATELET COUNT 458 X10'3 (140-440); RED BLOOD COUNT 3.67 X10'6 (4.20-5.60); RED CELL DISTRIBUTION WIDTH 16.2 % (11.5-14.5); WHITE BLOOD COUNT 16.6 X10'3 (4.5-11.0)
[2023-07-30 06:44] LABS: ALANINE AMINOTRANSFERASE 22 U/L (12-78); ALBUMIN 2.5 G/DL (3.4-5.0); ALBUMIN/GLOBULIN RATIO 0.7 (1.1-1.5); ALKALINE PHOSPHATASE 47 IU/L (46-116); ANION GAP 7 (8-16); ASPARTATE AMINO TRANSFERASE 34 U/L (10-37); BILIRUBIN,TOTAL 0.3 MG/DL (0.1-1.0); BLOOD UREA NITROGEN 11 MG/DL (7-18); BUN/CREATININE RATIO 16.9 (10.0-20.0); CALCIUM 8.2 MG/DL (8.5-10.1); CHLORIDE 102 MMOL/L (99-107); CREATININE 0.65 MG/DL (0.40-0.90); GLUCOSE 150 MG/DL (70-104); PHOSPHORUS 2.9 MG/DL (2.3-4.5); POTASSIUM 3.2 MMOL/L (3.5-5.1); SODIUM 137 MMOL/L (135-145); TOTAL CARBON DIOXIDE 27.6 MMOL/L (24-32); TOTAL PROTEIN 6.1 G/DL (6.4-8.2); eCRCL 67 ML/MIN; eGFR > 90 ML/MIN
[2023-07-30 07:47] LABS: ANISOCYTOSIS 1+; PLATELET ESTIMATE INCREASED
[2023-07-30 07:48] LABS: HYPOCHROMASIA 1+
[2023-07-30] MEDS ORDERED: non-formulary drug (Tiotropium Bromide (Spiriva Respimat) 2 PUFFS) INH SCH (08:00)
[2023-07-30] MEDS: levoTHYROXINE 100mcg tablet PO SCH (08:00)
[2023-07-30] MEDS: ascorbic acid 500mg tablet PO SCH (08:00)
[2023-07-30] MEDS: montelukast 10mg tablet PO SCH (08:10)
[2023-07-30] MEDS: cyanocobalamin 500mcg tablet PO SCH (08:13)
[2023-07-30] MEDS: cholecalciferol (vitamin D3) 1,000 unit (25mcg) tablet PO SCH (08:13)
[2023-07-30] MEDS: amLODIPine 5mg tablet PO SCH (08:14)
[2023-07-30] MEDS: FLU VACC QS2023-24(6MOS UP)/PF 60 MCG/0.5 ML SYRINGE IM ONE (11:46)
[2023-07-30] MEDS ORDERED: GUAI1TBM19 PO (11:49)
[2023-07-30] MEDS ORDERED: LEVO-65 PO (11:49)
== END 2023-07-30 13:46 | disposition home or self-care (01) | DRG 871 ==
LOC: ER 17:38 → ED HOLD 21:52 → EDBEDREQ 07-29 02:25 → SUR 3N 07-29 07:50
PROVIDERS: ADMIT Internal Medicine Critical Care Medicine; ATTEND Internal Medicine
PROC: B32T1ZZ Computerized Tomography (CT Scan) of Left Pulmonary Artery using Low Osmolar Contrast (ICD-10-PCS; principal; 2023-07-28)
PROC: B3201ZZ Computerized Tomography (CT Scan) of Thoracic Aorta using Low Osmolar Contrast (ICD-10-PCS; 2023-07-28)
PROC: B32S1ZZ Computerized Tomography (CT Scan) of Right Pulmonary Artery using Low Osmolar Contrast (ICD-10-PCS; 2023-07-28)
DX: A41.9 Sepsis, unspecified organism (principal); J18.9 Pneumonia, unspecified organism; J96.21 Acute and chronic respiratory failure with hypoxia; C34.91 Malignant neoplasm of unspecified part of right bronchus or lung; C78.1 Secondary malignant neoplasm of mediastinum; J44.0 Chronic obstructive pulmonary disease with (acute) lower respiratory infection; J44.1 Chronic obstructive pulmonary disease with (acute) exacerbation; J43.9 Emphysema, unspecified; Z20.822 Contact with and (suspected) exposure to COVID-19; F41.9 Anxiety disorder, unspecified; E03.9 Hypothyroidism, unspecified; J20.9 Acute bronchitis, unspecified; I10 Essential (primary) hypertension; Z87.891 Personal history of nicotine dependence; Z79.899 Other long term (current) drug therapy; Z99.81 Dependence on supplemental oxygen; Z90.710 Acquired absence of both cervix and uterus; Z90.49 Acquired absence of other specified parts of digestive tract; Z85.41 Personal history of malignant neoplasm of cervix uteri; Z85.828 Personal history of other malignant neoplasm of skin; Z88.8 Allergy status to other drugs, medicaments and biological substances; Z88.5 Allergy status to narcotic agent; Z91.048 Other nonmedicinal substance allergy status
CPT/HCPCS: 36415; 71045; 71275; 80053; 81001; 83605; 83735; 83880; 84100; 84145; 84443; 84484; 85008; 85025; 85379; 87040; 87077; 87081; 87186; 87502; 87503; 87634; 87811; 90686; 93005; 94640; 94664; 94668; 94760; 96361; 96365; 96375; 97116; 97161; 97530; 99285; A4314; A6449; C1758; G0378; J0131; J0696; J2920; J2930; J3490; J7030; Q9967